=== PATIENT | male | born 1960 | race Caucasian/White ===

== ENCOUNTER 2020-12-24 11:55 | Emergency (ER) | payer OTHER ==
[~2020-12-24] VITALS: Ht 170.1 cm; Wt 68.0 kg
[2020-12-24 13:23] LABS: BASO % 0.3 % (0.0-1.0); EOS % 0.2 % (1.0-4.0); LYMPH # 0.9 10*3/uL (1.3-4.4); LYMPH % 13.9 % (27.0-41.0); MEAN CELL VOLUME 88.8 fl (80.0-94.0); MEAN CORPUSCULAR HGB 31.2 pg (27.0-31.0); MEAN CORPUSCULAR HGB CONC 35.1 g/dl (33.0-37.0); MEAN PLATELET VOLUME 9.6 fl (9.6-12.3); MONO # 0.8 10*3/uL (0.1-1.0); MONO % 13.2 % (3.0-9.0); NEUT # 4.5 10*3/uL (2.3-7.9); NEUT % 72.1 % (47.0-73.0); PLATELET COUNT AUTOMATED 195 10*3/uL (130-400); RED BLOOD COUNT 5.07 10*6/uL (4.50-5.90); RED CELL DISTRI WIDTH 13.3 % (0-14.5); WHITE BLOOD COUNT 6.2 10*3/uL (4.8-10.8)
[2020-12-24 13:34] LABS: ACT PARTIAL THROMBO TIME 30.5 SECONDS (20.0-32.1)
[2020-12-24 13:53] LABS: ALBUMIN 3.2 gm/dl (3.1-4.5); ALKALINE PHOSPHATASE 88 U/L (45-117); BUN 7 mg/dl (7-24); CHLORIDE 95 mmol/L (98-107); CREATININE 0.84 mg/dL (0.70-1.30); LIPASE 122 U/L (73-393); POTASSIUM 3.9 mmol/L (3.5-5.1); SGOT/AST 34 IU/L (3-35); SGPT/ALT 33 U/L (12-78); SODIUM 127 mmol/L (136-145)
[2020-12-24 13:54] LABS: TROPONIN I < 0.015 ng/ml (<0.045)
[2020-12-24 15:16] LABS: BILIRUBIN Negative (Negative); BLOOD Negative (Negative); CLARITY Clear (Clear); COLOR Yellow (Yellow); GLUCOSE Negative (Negative); KETONE 1+ (Negative); LEUKO ESTERASE Negative (Negative); NITRITE Negative (Negative); PH 5.5 (4.5-8.0); UROBILINOGEN 0.2 E.U./dl (0.0-1.0)
[2020-12-24 15:47] LABS: BACTERIA TRACE; EPITHELIAL CELLS 0-2; RBC 0-2 rbc/hpf (0-2)
[2020-12-24] MEDS ORDERED: PREDNISONE20 M1 PO (16:39)
[2020-12-24] MEDS ORDERED: PROVENTIL HFA6.7 GM INH (16:39)
[2020-12-24] MEDS ORDERED: ZITHROMAX250 MG PO (16:39)
== END 2020-12-24 18:56 | disposition home or self-care (01) ==
LOC: ED 11:55
PROVIDERS: Physician Assistant
DX: U07.1 COVID-19 (principal); J12.82 Pneumonia due to coronavirus disease 2019; E87.1 Hypo-osmolality and hyponatremia; J44.9 Chronic obstructive pulmonary disease, unspecified; F17.200 Nicotine dependence, unspecified, uncomplicated

== ENCOUNTER 2022-03-25 10:13 | Inpatient (IN) | payer SELFPAY ==
[2022-03-25] VITALS (23 sets, daily range): BP systolic 88–184; BP diastolic 59–118
[~2022-03-25] VITALS: Ht 182.9 cm; Wt 56.2 kg
[~2022-03-25 10:13] MED LIST: PREDNISONE20 M1 PO; PROVENTIL HFA6.7 GM INH; ZITHROMAX250 MG PO
[2022-03-25] MEDS ORDERED: ZESTORETIC 20-1 EACH PO (10:32)
[2022-03-25] MEDS ORDERED: FLUTICASONE-SA1 EAC4 INH (10:32)
[2022-03-25 10:53] LABS: BASO # 0.1 10*3/uL (0.0-0.1); BASO % 0.9 % (0.0-1.0); EOS % 0.5 % (1.0-4.0); HEMATOCRIT 48.9 % (42.0-52.0); LYMPH # 0.9 10*3/uL (1.3-4.4); LYMPH % 10.7 % (27.0-41.0); MEAN CELL VOLUME 88.6 fl (80.0-94.0); MEAN CORPUSCULAR HGB 30.8 pg (27.0-31.0); MEAN CORPUSCULAR HGB CONC 34.8 g/dl (33.0-37.0); MEAN PLATELET VOLUME 9.4 fl (9.6-12.3); MONO # 0.8 10*3/uL (0.1-1.0); MONO % 9.1 % (3.0-9.0); NEUT # 6.5 10*3/uL (2.3-7.9); NEUT % 78.6 % (47.0-73.0); PLATELET COUNT AUTOMATED 223 10*3/uL (130-400); RED BLOOD COUNT 5.52 10*6/uL (4.50-5.90); RED CELL DISTRI WIDTH 14.1 % (0-14.5); WHITE BLOOD COUNT 8.2 10*3/uL (4.8-10.8)
[2022-03-25 11:11] LABS: ALKALINE PHOSPHATASE 125 U/L (46-116); CHLORIDE 87 mmol/L (98-107); POTASSIUM 3.6 mmol/L (3.4-5.1); SGPT/ALT 50 U/L (10-49); TOTAL PROTEIN 8.2 gm/dL (6.0-8.0)
[2022-03-25 11:15] LABS: BUN < 5 mg/dl (9-23)
[2022-03-25 12:42] LABS: ARTERIAL BLOOD GAS PH 7.312 (7.35-7.45); ARTERIAL BLOOD GAS PO2 203.8 (80-90)
[2022-03-25 13:15] LABS: BILIRUBIN Negative (Negative); BLOOD Negative (Negative); CLARITY Clear (Clear); COLOR Yellow (Yellow); GLUCOSE Negative (Negative); KETONE Negative (Negative); LEUKO ESTERASE Negative (Negative); NITRITE Negative (Negative); PH 6.5 (4.5-8.0); UROBILINOGEN 0.2 E.U./dl (0.0-1.0)
[2022-03-25 13:23] LABS: URINE AMPHETAMINES Negative (1000ng/ml); URINE BARBITURATES Negative (200ng/ml); URINE BENZODIAZEPINES Negative (200ng/ml); URINE CANNABINOIDS (THC) Positive (50ng/ml); URINE COCAINE Positive (300ng/ml); URINE METHADONE Negative (300ng/ml); URINE OPIATES Negative (300ng/ml); URINE PHENCYCLIDINE Negative (25ng/ml)
[2022-03-25 13:25] LABS: RBC 0-2 rbc/hpf (0-2)
[2022-03-25 18:39] LABS: BUN 5 mg/dl (9-23); CHLORIDE 98 mmol/L (98-107); POTASSIUM 4.4 mmol/L (3.4-5.1)
[2022-03-26] VITALS (16 sets, daily range): BP systolic 77–123; BP diastolic 48–77
[2022-03-26 06:43] LABS: BASO % 0.2 % (0.0-1.0); HEMATOCRIT 42.6 % (42.0-52.0); LYMPH # 0.6 10*3/uL (1.3-4.4); LYMPH % 7.8 % (27.0-41.0); MEAN CELL VOLUME 91.2 fl (80.0-94.0); MEAN CORPUSCULAR HGB 31.3 pg (27.0-31.0); MEAN CORPUSCULAR HGB CONC 34.3 g/dl (33.0-37.0); MEAN PLATELET VOLUME 9.9 fl (9.6-12.3); MONO # 0.7 10*3/uL (0.1-1.0); MONO % 8.2 % (3.0-9.0); NEUT # 6.8 10*3/uL (2.3-7.9); NEUT % 83.2 % (47.0-73.0); PLATELET COUNT AUTOMATED 188 10*3/uL (130-400); RED BLOOD COUNT 4.67 10*6/uL (4.50-5.90); RED CELL DISTRI WIDTH 14.3 % (0-14.5); WHITE BLOOD COUNT 8.2 10*3/uL (4.8-10.8)
[2022-03-26 06:49] LABS: ALKALINE PHOSPHATASE 79 U/L (46-116); BUN 12 mg/dl (9-23); CHLORIDE 100 mmol/L (98-107); CHOLESTEROL 141 mg/dL (<200); FREE T4 0.97 ng/dl (0.89-1.76); LDL CHOLESTEROL 79 mg/dL (9-159); POTASSIUM 4.6 mmol/L (3.4-5.1); SGPT/ALT 31 U/L (10-49); THYROID STIM HORMONE (HS) 0.472 uIU/ml (0.550-4.780); TOTAL PROTEIN 5.7 gm/dL (6.0-8.0); TRIGLYCERIDES 64 mg/dl (<150)
[2022-03-26 06:58] LABS: ACT PARTIAL THROMBO TIME 28.6 SECONDS (20.0-32.1)
[2022-03-26 07:01] LABS: VITAMIN D, 25-HYDROXY 10.9 ng/mL (30-100)
[2022-03-27] VITALS (12 sets, daily range): BP systolic 79–143; BP diastolic 48–91
[2022-03-27 05:40] LABS: BUN 14 mg/dl (9-23); CHLORIDE 104 mmol/L (98-107); POTASSIUM 4.4 mmol/L (3.4-5.1)
[2022-03-27 06:29] LABS: BASO % 0.1 % (0.0-1.0); EOS % 0.1 % (1.0-4.0); LYMPH # 0.5 10*3/uL (1.3-4.4); LYMPH % 4.7 % (27.0-41.0); MEAN CELL VOLUME 92.6 fl (80.0-94.0); MEAN CORPUSCULAR HGB 31.3 pg (27.0-31.0); MEAN CORPUSCULAR HGB CONC 33.8 g/dl (33.0-37.0); MEAN PLATELET VOLUME 10.8 fl (9.6-12.3); MONO # 0.7 10*3/uL (0.1-1.0); MONO % 6.9 % (3.0-9.0); NEUT # 9.4 10*3/uL (2.3-7.9); NEUT % 87.4 % (47.0-73.0); PLATELET COUNT AUTOMATED 173 10*3/uL (130-400); RED BLOOD COUNT 4.32 10*6/uL (4.50-5.90); RED CELL DISTRI WIDTH 14.6 % (0-14.5); WHITE BLOOD COUNT 10.8 10*3/uL (4.8-10.8)
[2022-03-28] VITALS: BP 94/64
[2022-03-28 02:00] VITALS: BP 98/68
[2022-03-28 04:00] VITALS: BP 124/70
[2022-03-28 05:33] LABS: BUN 17 mg/dl (9-23); CHLORIDE 100 mmol/L (98-107); POTASSIUM 3.7 mmol/L (3.4-5.1)
[2022-03-28 06:00] VITALS: BP 108/62
[2022-03-28 06:21] LABS: HEMATOCRIT 40.1 % (42.0-52.0); LYMPH # 0.4 10*3/uL (1.3-4.4); LYMPH % 3.9 % (27.0-41.0); MEAN CELL VOLUME 92.8 fl (80.0-94.0); MEAN CORPUSCULAR HGB 30.8 pg (27.0-31.0); MEAN CORPUSCULAR HGB CONC 33.2 g/dl (33.0-37.0); MEAN PLATELET VOLUME 10.8 fl (9.6-12.3); MONO # 0.7 10*3/uL (0.1-1.0); MONO % 7.3 % (3.0-9.0); NEUT # 8.9 10*3/uL (2.3-7.9); PLATELET COUNT AUTOMATED 166 10*3/uL (130-400); RED BLOOD COUNT 4.32 10*6/uL (4.50-5.90); RED CELL DISTRI WIDTH 14.5 % (0-14.5); WHITE BLOOD COUNT 10.1 10*3/uL (4.8-10.8)
[2022-03-28 08:00] VITALS: BP 117/71; BP 132/87
[2022-03-28] MEDS ORDERED: ZITHROMAX250 MG PO (10:39)
[2022-03-28] MEDS ORDERED: HYDROCHLOROTH12.5 M2 PO (10:39)
[2022-03-28] MEDS ORDERED: OMNICEF300 MG PO (10:39)
== END 2022-03-28 11:00 | disposition home or self-care (01) | DRG 915 ==
LOC: ED 10:13 → ICCU 11:27 → EDHOLD 11:27 → ICCU 12:25
PROVIDERS: Emergency Medicine; Student in an Organized Health Care Education/Training Program; ADMIT Internal Medicine; ATTEND Internal Medicine
PROC: 5A1945Z Respiratory Ventilation, 24-96 Consecutive Hours (ICD-10-PCS; principal; 2022-03-25)
PROC: 0BH17EZ Insertion of Endotracheal Airway into Trachea, Via Natural or Artificial Opening (ICD-10-PCS; 2022-03-25)
DX: T78.3XXA Angioneurotic edema, initial encounter (principal); E43 Unspecified severe protein-calorie malnutrition; E87.1 Hypo-osmolality and hyponatremia; Z68.1 Body mass index [BMI] 19.9 or less, adult; I10 Essential (primary) hypertension; J44.9 Chronic obstructive pulmonary disease, unspecified; R73.9 Hyperglycemia, unspecified; R74.01 Elevation of levels of liver transaminase levels; F17.219 Nicotine dependence, cigarettes, with unspecified nicotine-induced disorders; F10.929 Alcohol use, unspecified with intoxication, unspecified; Z88.8 Allergy status to other drugs, medicaments and biological substances; Z86.16 Personal history of COVID-19; Z78.9 Other specified health status